=== PATIENT | female | born 1940 | race Caucasian/White ===

== ENCOUNTER 2021-12-07 15:26 | Emergency (ER) | payer MEDICARE ==
[~2021-12-07 15:26] MED LIST: ACCUPRIL20 MG PO; COMPLETE MULTI1 EACH PO; METFORMIN HCL500 MG PO; NEURONTIN300 MG PO; PRILOSEC20 MG PO; VITAMIN B122500 MCG PO; VITAMIN D35000 UNI2 PO; ZOCOR40 MG PO
[2021-12-07 16:08] LABS: BASOPHIL 0.9 % (0-2); EOSINOPHIL 4.9 % (0-7); HCT 41.1 % (37.0-47.0); HGB 13.3 g/dl (12.5-16.0); LYMPHOCYTE 44.2 % (15-48); MCH 29.8 pg (25.0-31.0); MCHC 32.4 g/dL (32.0-36.0); MCV 92.2 fL (78.0-100.0); MONOCYTE 7.3 % (0-12); MPV 11.9 fL (6.0-9.5); NEUTROPHIL 42.3 % (41-80); NRBC 0; PLT 207 K/uL (150-400); RBC 4.46 M/uL (4.20-5.40); RDW 12.8 % (11.5-14.0); WBC 9.2 K/uL (4.0-10.5)
[2021-12-07 16:21] LABS: ALBUMIN 3.8 g/dL (3.4-5.0); BILIRUBIN - TOTAL 0.3 mg/dL (0.2-1.0); BUN/CREAT RATIO (CALC) 13.3 RATIO; CREATININE 0.9 mg/dL (0.51-0.95); GLOBULIN (CALCULATION) 2.9 g/dL; POTASSIUM 4.2 mmol/L (3.5-5.1); TOTAL PROTEIN 6.7 g/dL (6.4-8.2)
[2021-12-07] MEDS ORDERED: LASIX20 MG PO (18:11)
[2021-12-07] MEDS ORDERED: POTASSIUM CHLO10 MEQ PO (18:11)
== END 2021-12-07 18:25 | disposition home or self-care (01) ==
LOC: FER 15:26
PROVIDERS: Nurse Practitioner Family
DX: I11.0 Hypertensive heart disease with heart failure (principal); I50.9 Heart failure, unspecified; E11.40 Type 2 diabetes mellitus with diabetic neuropathy, unspecified; Z79.84 Long term (current) use of oral hypoglycemic drugs; Z88.1 Allergy status to other antibiotic agents; Z88.5 Allergy status to narcotic agent; Z91.041 Radiographic dye allergy status
CPT/HCPCS: 36415; 71045; 80053; 83880; 84484; 85025; 93005; 93971